=== PATIENT | female | born 1995 | race Caucasian/White ===

== ENCOUNTER 2016-07-01 11:38 | Emergency (ER) | payer BC ==
[2016-07-01] MEDS ORDERED: Ketorolac INJ* 30 MG/ML 1 ML VIAL IV ONE (13:07)
[2016-07-01 13:16] LABS: Comments Flag Yes; Hematocrit 39 % (35-47); Hemoglobin 12.9 g/dl (12.0-16.0); Mean Corpuscular HGB Conc 33 g/dl (31-36); Mean Corpuscular Hemoglobin 29 pg (27-31); Mean Corpuscular Volume 87 fL (80-97); Mean Platelet Volume 10 um3 (7.4-10.4); Red Blood Count 4.51 10^6/ul (4.0-5.4); Red Cell Distribution Width 14 % (10.5-15); White Blood Count 2.7 10^3/ul (3.5-10.8)
[2016-07-01 13:18] LABS: Add Diff/Slide Review? Slide Review Added
[2016-07-01 13:27] LABS: Albumin 4.2 g/dL (3.2-5.2); BUN/Creatinine Ratio 12.5 (8-20); C Reactive Protein 58.11 mg/L (< 5.00); Calcium 9.2 mg/dL (8.6-10.3); EGFR African American 106.5 (>60); EGFR Non-African American 82.8 (>60); Globulin 3.2 g/dL (2-4); Potassium 3.4 mmol/L (3.5-5.0); Total Bilirubin 0.6 mg/dL (0.2-1.0); Total Protein 7.4 g/dL (6.4-8.9)
[2016-07-01] MEDS: NS 0.9% 1000 ML* 2,000 ML IV ONE ×2 (13:30→14:24)
--- NOTE | 2016-07-01 13:54 | RAD ---
INDICATION: Shortness of breath. Multiple days fever. Exercise-induced asthma. COMPARISON: None. TECHNIQUE: Dual energy PA and routine lateral views of the chest were obtained. REPORT: Clear lungs and pleural spaces. Negative for pneumothorax. The heart, pulmonary vasculature, and mediastinal contours are unremarkable. Unremarkable osseous structures and soft tissue contours. IMPRESSION: No evidence for pneumonia. Negative exam.
[2016-07-01 14:43] LABS: Urine Bacteria Absent (Absent); Urine Bilirubin Negative (Negative); Urine Glucose Negative (Negative); Urine Nitrite Negative (Negative)
--- NOTE | 2016-07-01 14:54 | ED ---
Influenza-Like Illness - HPI Summary HPI Summary: Patient presents with a combination of symptoms. She has a history of labial lesions that were diagnosed two years ago with MRSA. She presents today with 5 days of evolving lesions that she thinks appear to be resolving. She can not relate the onset to any activity. She has not had a new sexual partner, and professes to practice safe sex. She denies vaginal drainage and her period is just ending and is regular. As for her URI symptoms, these have gone on for approximately a week with a cough, congestion, temperatures around 100 and body aches. She called in to work yesterday and today, and has been resting. She his able to eat and drink without N/V/D or constipation. She has had intermittent WARREN that resolves with ibuprofen or Tylenol. No CP, SOB, abdominal or back pain. No urinary symptoms. - History of Current Complaint Chief Complaint: EDFever Time Seen by Provider: 07/01/16 11:55 Hx Obtained From: Patient, Family/Electrical Instrument Technician Onset/Duration: Gradual Onset Severity: Moderate Associated Signs & Symptoms: Fever, Myalgia, Cough, Nasal Congestion Related Hx: Possible Flu/Infectious Exposure - Allergy/Home Medications Allergies/Adverse Reactions: Allergies Allergy/AdvReac Type Severity Reaction Status Date / Time Hydrocodone Allergy Severe Shakes Verified 07/01/16 11:51 Peanuts Allergy Severe Headache Uncoded 07/01/16 11:51 PMH/Surg Hx/FS Hx/Imm Hx Endocrine/Hematology History: Denies: Hx Diabetes, Hx Thyroid Disease Cardiovascular History: Denies: Hx Hypertension Respiratory History: Reports: Hx Asthma - exercise induced Denies: Hx Chronic Obstructive Pulmonary Disease (COPD) GI History: Denies: Hx Ulcer Psychiatric History: Denies: Hx Eating Disorder, Hx of Violent Episodes Against Others Infectious Disease History: Yes Infectious Disease History: Reports: Hx of Known/Suspected MRSA - VAGINAL LESIONS, BOILS (FOREHEAD, LEGS) Denies: Hx Clostridium Difficile, Hx Hepatitis, Hx Human Immunodeficiency Virus (HIV), Hx Shingles, Hx Tuberculosis, Hx Known/Suspected VRE, Hx Known/ Suspected VRSA, History Other Infectious Disease, Traveled Outside the [place] in Last 30 Days - Family History Known Family History: Positive: Other - GER'S THYROIDITIS Negative: Cardiac Disease, Hypertension, Diabetes - Social History Occupation: Employed Full-time Lives: With Family Alcohol Use: None Substance Use Type: Reports: None Smoking Status (MU): Never Smoked Tobacco Review of Systems Positive: Fever, Fatigue Negative: Photophobia, Blurred Vision Negative: Sore Throat, Ear Ache Negative: Chest Pain Positive: Cough. Negative: Shortness Of Breath Negative: Abdominal Pain, Vomiting, Diarrhea, Nausea Positive: no symptoms reported Positive: Myalgia Negative: Headache, Weakness, Paresthesia All Other Systems Reviewed And Are Negative: Yes Physical Exam Triage Information Reviewed: Yes Vital Signs On Initial Exam: Initial Vitals Temp Pulse Resp BP Pulse Ox 102.0 F 107 16 135/70 100 07/01/16 11:40 07/01/16 11:40 07/01/16 11:40 07/01/16 11:40 07/01/16 11:40 Vital Signs Reviewed: Yes Appearance: Positive: Well-Appearing, No Pain Distress, Well-Nourished Skin: Positive: Warm, Skin Color Reflects Adequate Perfusion, Dry, Soft Head/Face: Positive: Normal Head/Face Inspection Eyes: Positive: EOMI, MAYE, Conjunctiva Clear ENT: Positive: Hearing grossly normal, Pharynx normal, TMs normal Neck: Positive: Supple, Nontender, No Lymphadenopathy Respiratory/Lung Sounds: Positive: Clear to Auscultation, Breath Sounds Present Cardiovascular: Positive: RRR - on exam Abdomen Description: Positive: Nontender, Soft. Negative: CVA Tenderness (R), CVA Tenderness (L), Distended, Guarding Bowel Sounds: Positive: Present Pelvic Exam: Positive: lesions - two flat, 2mm non-pustular, non-draining, lesions on the right labia minora that appear benign and non-painful. Negative : active bleeding, discharge Musculoskeletal: Positive: Strength/ROM Intact. Negative: Edema Left, Edema Right Neurological: Positive: Sensory/Motor Intact, Alert, Oriented to Person Place, Time, NV Bundle Intact Distally, Normal Gait Psychiatric: Positive: Affect/Mood Appropriate AVPU Assessment: Alert - Mio Coma Scale Coma Scale Total: 15 Diagnostics - Vital Signs Vital Signs Temp Pulse Resp BP Pulse Ox 07/01/16 14:40 102.4 F 07/01/16 14:24 103 F 86 16 123/61 98 07/01/16 11:40 102.0 F 107 16 135/70 100 - Laboratory Lab Results: Lab Results 07/01/16 07/01/16 07/01/16 Range/Units 12:25 12:25 14:13 WBC 2.7 L (3.5-10.8) 10^3/ul RBC 4.51 (4.0-5.4) 10^6/ul Hgb 12.9 (12.0-16.0) g/dl Hct 39 (35-47) % MCV 87 (80-97) fL MCH 29 (27-31) pg MCHC 33 (31-36) g/dl RDW 14 (10.5-15) % Plt Count 81 L (150-450) 10^3/ul MPV 10 (7.4-10.4) um3 Neut % (Auto) 63.5 (38-83) % Lymph % (Auto) 20.4 L (25-47) % Shoshone % (Auto) 13.9 H (1-9) % Eos % (Auto) 0.2 (0-6) % Baso % (Auto) 2.0 (0-2) % Absolute Neuts (auto) 1.7 (1.5-7.7) 10^3/ul Absolute Lymphs (auto) 0.5 L (1.0-4.8) 10^3/ul Absolute Monos (auto) 0.4 (0-0.8) 10^3/ul Absolute Eos (auto) 0 (0-0.6) 10^3/ul Absolute Basos (auto) 0.1 (0-0.2) 10^3/ul Absolute Nucleated RBC 0 10^3/ul Nucleated RBC % 0.1 Sodium 133 (133-145) mmol/L Potassium 3.4 L (3.5-5.0) mmol/L Chloride 101 (101-111) mmol/L Carbon Dioxide 27 (22-32) mmol/L Anion Gap 5 (2-11) mmol/L BUN 11 (6-24) mg/dL Creatinine 0.88 (0.51-0.95) mg/dL Est GFR ( Amer) 106.5 (>60) Est GFR (Non-Af Amer) 82.8 (>60) BUN/Creatinine Ratio 12.5 (8-20) Glucose 95 (70-100) mg/dL Calcium 9.2 (8.6-10.3) mg/dL Total Bilirubin 0.60 (0.2-1.0) mg/dL AST 40 H (13-39) U/L ALT 33 (7-52) U/L Alkaline Phosphatase 67 (34-104) U/L C-Reactive Protein 58.11 H (< 5.00) mg/L Total Protein 7.4 (6.4-8.9) g/dL Albumin 4.2 (3.2-5.2) g/dL Globulin 3.2 (2-4) g/dL Albumin/Globulin Ratio 1.3 (1-3) Urine Color Urine Appearance Urine pH (5-9) Ur Specific Jackson (1.010-1.030) Urine Protein (Negative) Urine Ketones (Negative) Urine Blood (Negative) Urine Nitrate (Negative) Urine Bilirubin (Negative) Urine Urobilinogen (Negative) Ur Leukocyte Esterase (Negative) Urine WBC (Auto) (Absent) Urine RBC (Auto) (Absent) Ur Squamous Epith Cells (Absent) Urine Bacteria (Absent) Urine Glucose (Negative) Influenza A (Rapid) Negative (Negative) Influenza B (Rapid) Negative (Negative) 07/01/16 Range/Units 14:25 WBC (3.5-10.8) 10^3/ul RBC (4.0-5.4) 10^6/ul Hgb (12.0-16.0) g/dl Hct (35-47) % MCV (80-97) fL MCH (27-31) pg MCHC (31-36) g/dl RDW (10.5-15) % Plt Count (150-450) 10^3/ul MPV (7.4-10.4) um3 Neut % (Auto) (38-83) % Lymph % (Auto) (25-47) % Shoshone % (Auto) (1-9) % Eos % (Auto) (0-6) % Baso % (Auto) (0-2) % Absolute Neuts (auto) (1.5-7.7) 10^3/ul Absolute Lymphs (auto) (1.0-4.8) 10^3/ul Absolute Monos (auto) (0-0.8) 10^3/ul Absolute Eos (auto) (0-0.6) 10^3/ul Absolute Basos (auto) (0-0.2) 10^3/ul Absolute Nucleated RBC 10^3/ul Nucleated RBC % Sodium (133-145) mmol/L Potassium (3.5-5.0) mmol/L Chloride (101-111) mmol/L Carbon Dioxide (22-32) mmol/L Anion Gap (2-11) mmol/L BUN (6-24) mg/dL Creatinine (0.51-0.95) mg/dL Est GFR ( Amer) (>60) Est GFR (Non-Af Amer) (>60) BUN/Creatinine Ratio (8-20) Glucose (70-100) mg/dL Calcium (8.6-10.3) mg/dL Total Bilirubin (0.2-1.0) mg/dL AST (13-39) U/L ALT (7-52) U/L Alkaline Phosphatase (34-104) U/L C-Reactive Protein (< 5.00) mg/L Total Protein (6.4-8.9) g/dL Albumin (3.2-5.2) g/dL Globulin (2-4) g/dL Albumin/Globulin Ratio (1-3) Urine Color Yellow Urine Appearance Cloudy Urine pH 5.0 (5-9) Ur Specific Jackson 1.019 (1.010-1.030) Urine Protein 1+(30 mg/dl) H (Negative) Urine Ketones 1+ H (Negative) Urine Blood Negative (Negative) Urine Nitrate Negative (Negative) Urine Bilirubin Negative (Negative) Urine Urobilinogen Negative (Negative) Ur Leukocyte Esterase Negative (Negative) Urine WBC (Auto) Trace(0-5/hpf) (Absent) Urine RBC (Auto) 1+(3-5/hpf) H (Absent) Ur Squamous Epith Cells Present H (Absent) Urine Bacteria Absent (Absent) Urine Glucose Negative (Negative) Influenza A (Rapid) (Negative) Influenza B (Rapid) (Negative) Result Diagrams: 07/01/16 12:25 07/01/16 12:25 Lab Statement: Any lab studies that have been ordered have been reviewed, and results considered in the medical decision making process. Re-Evaluation - Re-Evaluation First Eval Re-Evaluation Time: 15:15 Change: Improved Comment: Patient feeling better. Flu Symptom Course/Dx - Course Course Of Treatment: Cultures of the lesions were obtained and sent for evaluation. The patient's symptoms improved with fluids and Toradol. She will be d/c home with a plan to follow-up with her PCP. - Diagnoses Differential Diagnosis/HQI/PQRI: Positive: Bronchitis, Influenza, Pneumonia, RSV , Upper Respiratory Infection Provider Diagnoses: Viral syndrome, Labial lesion Discharge - Discharge Plan Condition: Stable Disposition: HOME Patient Education Materials: Viral Syndrome (ED) Forms: *Work Release Referrals: Kelvin Bloom MD [Primary Care Provider] - Additional Instructions: Please rest and drink extra fluids. Use ibuprofen 600mg three times daily with meals and Tylenol 650 every four hours to reduce your fever. Follow-up with your primary care provider in 2-3 days if your symptoms persist. If your symptoms worsen please return to the emergency department.
[2016-07-01 15:09] VITALS: BP 109/55
== END 2016-07-01 15:08 | disposition home or self-care (01) ==
LOC: ED 11:38
DX: B34.9 Viral infection, unspecified (principal); R50.9 Fever, unspecified; M79.1 Myalgia; R05 Cough; N90.89 Other specified noninflammatory disorders of vulva and perineum
CPT/HCPCS: 36415; 71020; 80053; 81003; 81015; 85025; 86140; 87070; 87205; 87502; 96361; 96374; 99283; J1885

== ENCOUNTER 2017-12-27 09:33 | Emergency (ER) | payer BC, OTHER ==
[2017-12-27 10:00] VITALS: BP 147/67
--- NOTE | 2017-12-27 10:16 | UC ---
Back Pain HPI - HPI Summary HPI Summary: This is scribe Marian Putnam documenting for attending Samira Quijano M.D. Pt is a 22 y/o F who presents to [facility] c/o R foot pain and swelling s/p trauma while at work. Yesterday at about 1600, while wearing rubber boots the pt's R foot was stepped on by a cow, causing her to fall and end up underneath the cow. She was hit on her R elbow by the cow, causing an abrasion. Negative head trauma or LOC. No blood loss from the eyes, ears, or mouth. The 3rd toe on the R foot began bruising immediately and is painful and swollen. On triage, pain is severe ranked 9/10 and is worse since taking her shoe off. She has not taken anything for the pain, continued working all night and has not applied ice. Sx aggravated by movement. Also reports RUE and R-sided back pain. Denies dysuria. Cleaned her R elbow abrasion with soap and water while in the shower. Last Tetanus shot was 2 years ago and she is currently on Doxycycline for MRSA in the inguinal region, which she has been on for 10 days and today is the last day. No chance of . Patient hasn't taken any analgesia. She states her right foot got more painful when she took off her shoe. Patients medication reviewed this visit. - History of Current Complaint Chief Complaint: UCBackPain Stated Complaint: BACK PAIN Time Seen by Provider: 12/27/17 10:06 Hx Obtained From: Patient Hx Last Menstrual Period: 12/25/17 Onset/Duration: Still Present Severity Currently: Severe Pain Intensity: 9 Pain Scale Used: 0-10 Numeric Back Pain: Is Discrete @ - R foot Aggravating Factor(s): Movement Alleviating Factor(s): Nothing - Allergies/Home Medications Allergies/Adverse Reactions: Allergies Allergy/AdvReac Type Severity Reaction Status Date / Time hydrocodone Allergy Intermediate Shakes Verified 12/27/17 10:29 Peanuts Allergy Severe Headache Uncoded 12/27/17 10:29 Home Medications: Home Medications DOXYcycline CAP(*) [DOXYcycline 100MG CAP(*)] 100 mg PO DAILY 12/27/17 [History Confirmed 12/27/17] PMH/Surg Hx/FS Hx/Imm Hx - Additional Past Medical History Additional PMH: Negative PMHx: HTN, COPD, DM Previously Healthy: Yes Respiratory History: Asthma - Exercise-induced - Surgical History Surgical History: None Surgery Procedure, Year, and Place: denies - Family History Known Family History: Positive: Other - GER'S THYROIDITIS Negative: Cardiac Disease, Hypertension, Diabetes - Social History Alcohol Use: Rare Substance Use Type: None Smoking Status (MU): Never Smoked Tobacco - Immunization History Most Recent Influenza Vaccination: NEVER Most Recent Tetanus Shot: ~2009 Vaccination Up to Date: Yes Review of Systems Constitutional: Negative Skin: Bruising - R foot (3rd toe), Other - R elbow abrasion, R foot swelling Eyes: Negative ENT: Negative Respiratory: Negative Cardiovascular: Negative Gastrointestinal: Negative Genitourinary: Negative Motor: Negative Neurovascular: Negative Musculoskeletal: Other: - R foot, R-sided back and RUE pain Neurological: Negative Psychological: Negative All Other Systems Reviewed And Are Negative: Yes - Comments Additional Review of Systems Comments: NEGATIVE: LOC, dysuria Physical Exam - Summary Physical Exam Summary: Vital Signs Reviewed: Yes A+Ox3, no distress Eyes: Conjunctiva Clear, MAYE. EOM intact and full ENT: Hearing grossly normal TM x 2 clear, mmoist, uvula midline, no exudate, no erythema Neck: Positive: Supple Respiratory: Positive: No respiratory distress, No accessory muscle use + CTA throughout no w/r Cardiovascular: RRR nl s1, s2 no m/r CBT <2 sec abd soft + BS nt/nd no guarding, no distension Musculoskeletal Exam: No neck pain - full AROM No pain c/t/l/s mild right lumbar paraspinal pain no crepitus + full AROM upper ext b/l + SLE + flex/ext knee, ankle + TTP right lateral anterior foot over 3-5 MT + great toe extension Neurological: Positive: Alert, + sensation throughout Psychological: Positive: Normal Response To Family Skin: Positive: no rash, + ecchymosis and edema right dorsum lateral foot no crepitus mild edema no abraison Triage Information Reviewed: Yes Vital Signs: Initial Vital Signs Temp 98.4 F 12/27/17 09:53 Pulse 69 12/27/17 09:53 Resp 18 12/27/17 09:53 BP 147/67 12/27/17 09:53 Pulse Ox 100 12/27/17 09:53 Diagnostics - Radiology Foot XR Xray Interpretation: No Acute Changes - No fracture of the right foot is noted. Physician reviewed this report. Radiology Interpretation Completed By: Radiologist Re-Evaluation - Re-Evaluation First Eval Re-Evaluation Time: 10:50 Comment: Discussed intrepretation of XR. Declined a work note or crutches, was advised to wear a hard-soled shoe. Pt declined crutchces, walking shoe, work note. elevate. ice. wound care. return precuations Back Pain Course/Dx - Course Course Of Treatment: Patient medications reviewed this visit. BP elevated - pt in pain - recommend f/u with PCP. Pt with contusion discomfort anterior aspect of right foot - dorsum, lateral. + TTP. No crepitus. Pt with mild right paraspinal lumbar pain. abraison right prox forearm, volar aspect - non suturable. will image. anaglesi. ice - Differential Dx/Diagnosis Provider Diagnoses: Foot contusion. elbow abraison Discharge - Sign-Out/Discharge Documenting (check all that apply): Patient Departure - Discharge - Discharge Plan Condition: Stable Disposition: HOME Patient Education Materials: Foot Contusion (ED) Referrals: Kelvin Bloom MD [Primary Care Provider] - Additional Instructions: - elevate your foot to help with swelling and pain - Okay to alternate ibuprofen (Advil, Motrin) 600mg and tylenol (acetaminophen) 1000mg every 3 hours for pain - apply ice (wrapped in a towel) 20 minutes at a time, 2-3 times a day - anticipate increased pain over the next 1-2 days. This is normal following an injury - after 2 days, apply heat to the areas that are sore - then slow, gentle stretching exercises - It is recommended you use a shoe with a hard sole to provide support under your foot - If you develop uncontrolled pain, vomiting, blood in your urine or any other concerns contact your doctor or return to the emergency department. - Billing Disposition and Condition Condition: STABLE Disposition: Home
[2017-12-27] MEDS ORDERED: Ibuprofen TAB* 600 MG PO ONE (10:41)
--- NOTE | 2017-12-27 12:40 | RAD ---
Indication: Right foot pain. 3 views of the right foot demonstrates no fracture. No other bone or joint abnormality is noted. IMPRESSION: No fracture of the right foot is noted.
== END 2017-12-27 11:02 | disposition home or self-care (01) ==
LOC: UCEAST 09:33
DX: S90.31XA Contusion of right foot, initial encounter (principal); S50.311A Abrasion of right elbow, initial encounter; W55.29XA Other contact with cow, initial encounter; Y93.9 Activity, unspecified; Y92.79 Other farm location as the place of occurrence of the external cause; Y99.0 Civilian activity done for income or pay; M54.5 Low back pain; Z88.5 Allergy status to narcotic agent; Z91.010 Allergy to peanuts
CPT/HCPCS: 99212; A9270-GY; G0463

== ENCOUNTER 2018-01-01 11:53 | Emergency (ER) | payer OTHER ==
--- NOTE | 2018-01-01 12:21 | UC ---
Lower Extremity/Ankle HPI - HPI Summary HPI Summary: 22 yo female presents with right foot pain. She tells me that she was seen on 12/27 for right foot pain because a cow stepped on her foot. XRs were negative. She tells me that her foot is still painful, but she has not been resting it, taking OTC medications, or applying ice. She has been working long days and reports that since the initial injury she has had two more instances of a cow stepping on the same foot. She is ambulatory without assistance, but does have a noticeable limp. Denies numbness or tingling. - History of Current Complaint Stated Complaint: RECHECK OF FOOT INJURY Time Seen by Provider: 01/01/18 12:21 Hx Obtained From: Patient Hx Last Menstrual Period: 12/25/17 Onset/Duration: Gradual Onset Severity Initially: Moderate Severity Currently: Moderate Pain Intensity: 5 Pain Scale Used: 0-10 Numeric Aggravating Factor(s): Standing, Ambulation Able to Bear Weight: Yes - Allergies/Home Medications Allergies/Adverse Reactions: Allergies Allergy/AdvReac Type Severity Reaction Status Date / Time hydrocodone Allergy Intermediate Shakes Verified 01/01/18 12:22 black pepper Allergy Swelling Verified 01/01/18 12:23 Of Face,Lips,& Throat grape Allergy Swelling Verified 01/01/18 12:23 Of Face,Lips,& Throat Peanuts Allergy Severe Headache Uncoded 01/01/18 12:22 PMH/Surg Hx/FS Hx/Imm Hx Respiratory History: Asthma - Surgical History Surgical History: None Surgery Procedure, Year, and Place: denies - Family History Known Family History: Positive: Other - GER'S THYROIDITIS Negative: Cardiac Disease, Hypertension, Diabetes - Social History Occupation: Employed Full-time Lives: With Family Alcohol Use: Rare Substance Use Type: None Smoking Status (MU): Never Smoked Tobacco - Immunization History Most Recent Influenza Vaccination: NEVER Most Recent Tetanus Shot: ~2009 Vaccination Up to Date: Yes Review of Systems Constitutional: Negative Skin: Negative Respiratory: Negative Cardiovascular: Negative Neurovascular: Negative Musculoskeletal: Other: - Right foot pain Neurological: Negative Psychological: Negative All Other Systems Reviewed And Are Negative: Yes Physical Exam - Summary Physical Exam Summary: GENERAL: NAD. WDWN. No pain distress. SKIN: No rashes, sores, lesions, or open wounds. NECK: Supple. Nontender. No lymphadenopathy. CHEST: No accessory muscle use. Breathing comfortably and in no distress. CV: Pulses intact PT and DP. Brisk cap refill. MSK: Right foot: TTP over 3rd-4th MTs. FROM. Strength 5/5. No edema or obvious bony deformities. No ecchymosis. NEURO: Alert. Sensations intact and symmetric B/L LEs PSYCH: Age appropriate behavior. Triage Information Reviewed: Yes Vital Signs: Vital Signs: Temp Pulse Resp BP Pulse Ox 98.4 F 76 18 125/65 98 01/01/18 12:25 01/01/18 12:25 01/01/18 12:25 01/01/18 12:25 01/01/18 12:25 Vital Signs Reviewed: Yes Lower Extremity Course/Dx - Course Course Of Treatment: XR: IMPRESSION: No fracture of the right foot is noted. CAM boot provided. Pt is going on vacation starting tomorrow and says she will be able to rest her foot then. Declined further treatment. - Differential Dx/Diagnosis Provider Diagnoses: right foot pain Discharge - Sign-Out/Discharge Documenting (check all that apply): Patient Departure - Discharge Plan Condition: Stable Disposition: HOME Patient Education Materials: Foot Contusion (ED) Forms: *Work Release Referrals: Kelvin Bloom MD [Primary Care Provider] - Additional Instructions: If you develop a fever, shortness of breath, chest pain, new or worsening symptoms - please call your PCP or go to the ED. 1) Rest and elevate your foot as much as possible - Billing Disposition and Condition Condition: STABLE Disposition: Home
[2018-01-01 12:31] VITALS: BP 125/65
--- NOTE | 2018-01-01 13:02 | RAD ---
Indication: Right foot pain at the third and fourth metatarsals. 3 views of the right foot demonstrates no fracture. No other bone or joint abnormality is noted. IMPRESSION: No fracture of the right foot is noted.
== END 2018-01-01 13:30 | disposition home or self-care (01) ==
LOC: UCEAST 11:53
DX: M79.671 Pain in right foot (principal); Z88.5 Allergy status to narcotic agent; Z91.018 Allergy to other foods
CPT/HCPCS: 99212; G0463

== ENCOUNTER 2018-02-13 10:57 | Emergency (ER) | payer OTHER ==
--- NOTE | 2018-02-13 12:35 | RAD ---
INDICATION: Right foot injury. COMPARISON: Comparison is made with a prior x-ray study from January 01, 2018. TECHNIQUE: 3 views of the right foot were obtained. FINDINGS: There is dorsal soft tissue swelling. There is a healing subacute fracture of the mid to distal diaphysis of the third metatarsal with prominent bony callus and cortical thickening which is new from the prior study. No additional fracture is seen. Joint spaces appear maintained. IMPRESSION: SUBACUTE HEALING FRACTURE OF THE THIRD METATARSAL.
--- NOTE | 2018-02-13 12:38 | UC ---
Lower Extremity/Ankle HPI - HPI Summary HPI Summary: PATIENT IS A AUTISM TUTOR. A COW STEPPED ON HER RIGHT FOOT YESTERDAY EVENING AND PATIENT NOW HAS PAIN AND SWELLING TO THE TOP OF HER RIGHT FOOT AND HER RIGHT FIFTH TOE. IS ABLE TO WEIGHT-BEAR BUT WITH SOME PAIN. - History of Current Complaint Chief Complaint: UCLowerExtremity Stated Complaint: FOOT INJURY Time Seen by Provider: 02/13/18 11:51 Hx Obtained From: Patient Hx Last Menstrual Period: 01/30/18 Onset/Duration: Sudden Onset, Lasting Hours, Still Present Severity Initially: Moderate Severity Currently: Moderate Pain Intensity: 5 Pain Scale Used: 0-10 Numeric Aggravating Factor(s): Standing, Ambulation Alleviating Factor(s): Rest Able to Bear Weight: Yes - WITH PAIN - Allergies/Home Medications Allergies/Adverse Reactions: Allergies Allergy/AdvReac Type Severity Reaction Status Date / Time hydrocodone Allergy Intermediate Shakes Verified 02/13/18 11:32 black pepper Allergy Swelling Verified 02/13/18 11:32 Of Face,Lips,& Throat grape Allergy Swelling Verified 02/13/18 11:32 Of Face,Lips,& Throat Peanuts Allergy Severe Headache Uncoded 02/13/18 11:32 PMH/Surg Hx/FS Hx/Imm Hx Respiratory History: Asthma - Surgical History Surgical History: None Surgery Procedure, Year, and Place: denies - Family History Known Family History: Positive: Other - GER'S THYROIDITIS Negative: Cardiac Disease, Hypertension, Diabetes - Social History Alcohol Use: Rare Substance Use Type: None Smoking Status (MU): Never Smoked Tobacco - Immunization History Most Recent Influenza Vaccination: NEVER Most Recent Tetanus Shot: ~2009 Vaccination Up to Date: Yes Review of Systems Constitutional: Negative Skin: Bruising Respiratory: Negative Cardiovascular: Negative Gastrointestinal: Negative Musculoskeletal: Arthralgia, Decreased ROM, Edema All Other Systems Reviewed And Are Negative: Yes Physical Exam Triage Information Reviewed: Yes Appearance: Well-Appearing, No Pain Distress, Well-Nourished Vital Signs: Initial Vital Signs Temp 97.9 F 02/13/18 11:33 Pulse 59 02/13/18 11:33 Resp 16 02/13/18 11:33 BP 115/46 02/13/18 11:33 Pulse Ox 100 02/13/18 11:33 Vital Signs Reviewed: Yes Eyes: Positive: Conjunctiva Clear ENT: Positive: Hearing grossly normal Neck: Positive: Supple Respiratory: Positive: No respiratory distress, No accessory muscle use Cardiovascular: Positive: Pulses Normal Abdomen Description: Positive: Soft Musculoskeletal: Positive: ROM Limited @ - RIGHT TOES, Edema @ - RIGHT FOOT, Other: - TTP BRIDGE OF RIGHT FOOT AND RIGHT 5TH TOE Neurological: Positive: Alert Psychological: Positive: Age Appropriate Behavior Skin: Positive: Other - BRUISING BRIDGE RIGHT FOOT. RIGHT 5TH TOE ERYTHEMA Diagnostics - Radiology RIGHT FOOT XRAY Xray Interpretation: Positive (See Comments) - SUBACUTE HEALING FRACTURE OF THE THIRD METATARSAL. Radiology Interpretation Completed By: Radiologist Lower Extremity Course/Dx - Course Course Of Treatment: XRAY RIGHT FOOT SHOWS SUBACUTE HEALING FRACTURE OF THE THIRD METATARSAL. UPON FURTHER REVIEW OF THE PATIENT'S CHART IT IS NOTED THAT SHE SUSTAINED A SIMILAR INJURY ON 12/27/18 WHEN A COW STEPPED ON HER FOOT. INITIAL X-RAYS WERE NEGATIVE. DUE TO PERSISTENT DISCOMFORT ON 01/01/19 PATIENT RETURNED FOR REEVALUATION. X-RAYS WERE AGAIN OBTAINED AND READ NEGATIVE. GIVEN TODAY'S X-RAY FINDING I REVIEWED THE 01/01/19 X-RAY IMAGES AND A SMALL CORTICAL DEFECT IS NOTED IN THE AREA OF QUESTION. NO NEW FRACTURE SEEN TODAY. ADVISED ORTHO FOLLOW-UP WITHIN THE NEXT 1-2 WEEKS. PATIENT HAS A CAM BOOT AT HOME THAT SHE CAN WEAR. ADVISED TO LIMIT WEIGHTBEARING. REST, ICE, COMPRESS, ELEVATE. IBUPROFEN NEEDED FOR DISCOMFORT. - Differential Dx/Diagnosis Provider Diagnoses: 1. CONTUSION RIGHT FOOT. 2. HEALING FRACTURE OF THE RIGHT THIRD METATARSAL Discharge - Sign-Out/Discharge Documenting (check all that apply): Patient Departure All imaging exams completed and their final reports reviewed: Yes - Discharge Plan Condition: Stable Disposition: HOME Patient Education Materials: Foot Contusion (ED) Referrals: Mali Vera MD [Medical Doctor] - 1 Week Kelvin Bloom MD [Primary Care Provider] - If Needed Additional Instructions: X-RAY RIGHT FOOT SHOWED A SUBACUTE HEALING FRACTURE OF THE THIRD METATARSAL. ON REVIEW OF YOUR PREVIOUS FOOT XRAY 01/01/19 A SMALL FRACTURE IS NOTED IN THIS SAME SPOT. NO NEW FRACTURES ARE SEEN TODAY. REST, ICE, COMPRESS, ELEVATE. WEAR YOUR CAMBOOT DURING ACTIVITY. FOLLOW-UP WITH ORTHO IN THE NEXT 1-2 WEEKS. OTC MEDS NEEDED FOR DISCOMFORT. - Billing Disposition and Condition Condition: STABLE Disposition: Home
[2018-02-13 13:12] VITALS: BP 128/60
== END 2018-02-13 13:12 | disposition home or self-care (01) ==
LOC: UCEAST 10:57
DX: S90.31XA Contusion of right foot, initial encounter (principal); S92.334A Nondisplaced fracture of third metatarsal bone, right foot, initial encounter for closed fracture; W55.29XA Other contact with cow, initial encounter; Y93.9 Activity, unspecified; Y92.79 Other farm location as the place of occurrence of the external cause; Z88.5 Allergy status to narcotic agent; Z91.010 Allergy to peanuts; Z91.018 Allergy to other foods
CPT/HCPCS: 99212; G0463

== ENCOUNTER 2018-05-30 07:02 | Day surgery (SDC) | payer BC, OTHER ==
[~2018-05-30 07:02] MED LIST: Buffered Lidocaine 0.9% SYRIN* 5 ML/SYR SYRINGE INTRADERM ONE; Lactated Ringers 1000 ML Bag* 1,000 ML IV SCH; Sodium Citrate/Citric Acid* 15 ML UDC PO ONE
[2018-05-30] MEDS ORDERED: Bupivacaine 0.25% SDV PF* 10 ML VIAL INJ ONE (07:16)
[2018-05-30] MEDS ORDERED: Naloxone* 0.4 MG/ML 1 ML VIAL IV PRN (07:57)
[2018-05-30] MEDS ORDERED: Lidocaine 2% PF * 5 ML VIAL ONE (08:14)
[2018-05-30] MEDS ORDERED: Propofol* 10 MG/ML 20 ML BTL ONE (08:14)
[2018-05-30] MEDS ORDERED: Midazolam* 1 MG/ML 2 ML VIAL (2 MG) ONE ×2 (08:17→08:44)
[2018-05-30] MEDS ORDERED: fentaNYL* 50 MCG/ML 2 ML VIAL (100 MCG VIAL) ONE (08:17)
[2018-05-30 09:10] VITALS: BP 113/74
--- NOTE | 2018-05-30 17:22 | OP ---
DATE OF OPERATION: 05/30/18 - [facility] DATE OF : 89 SURGEON: Aram Walker MD SENIOR PRODUCTION PLANNER: CONNER Morris ANESTHESIOLOGIST: Dr. Douglas. ANESTHESIA: Local MAC. PRE-OP DIAGNOSIS: Left index finger deep soft tissue mass. POST-OP DIAGNOSIS: Left index finger deep soft tissue mass. OPERATIVE PROCEDURE: Excision of left index finger base palmar soft tissue mass. INDICATIONS: Janette is 22. She has very large deep soft tissue mass just adjacent to the tendon sheath over the palmar aspect of the MCP joint flexion crease on the ulnar aspect of the index finger. We had talked about risks and benefits. Given the size of it, I thought it would be good to have it excised. We discussed again the risks and she wanted to proceed. FINDINGS: See above and below. ESTIMATED BLOOD LOSS: 1 mL. COMPLICATIONS: None. DESCRIPTION OF PROCEDURE: Janette was seen in the preoperative holding area. The correct site, side, and procedure were identified. We came back to the operating room and the arm was prepped and draped in the usual fashion and a time-out was performed. Prior to prepping and draping, I had infiltrated the operative area with 0.25% plain Marcaine. The arm was exsanguinated with the Esmarch and the tourniquet was inflated to 250 mmHg. I then made a small trapezoidal-type incision over the ulnar aspect of the index finger near the MCP joint flexion crease. I raised a full- thickness flap off the mass. The ulnar digital nerve was just immediately adjacent to the ulnar aspect of the mass. This was dissected free and retracted with a Ragnell retractor. I then released the soft tissue around the margins of the mass. The mass was then taken off the tendon sheath with a [place] blade. Once it was out and excised in its entirety, it was handed off as a specimen. It did look like a ganglion. The bed of the mass was cauterized with the Bovie cautery taking care not to cauterize the digital nerves. The wound was then irrigated out. Skin was closed with 4-0 nylon suture. Soft dressings were applied and she was taken to the recovery room in stable condition. [id number]/[facility] #: [id number] [facility]
== END 2018-05-30 09:25 | disposition home or self-care (01) ==
LOC: OREAST 07:02
PROVIDERS: ATTEND Orthopaedic Surgery Hand Surgery
DX: M67.442 Ganglion, left hand (principal); J45.990 Exercise induced bronchospasm
CPT/HCPCS: 81025; 88304; J2250; J2704; J3010; J3490

== ENCOUNTER 2018-09-05 20:12 | Emergency (ER) | payer BC, OTHER ==
[2018-09-05 20:25] VITALS: BP 132/73
--- NOTE | 2018-09-05 21:55 | UC ---
Eye Complaint HPI - HPI Summary HPI Summary: Started yesterday with a red irritated left eye. It wasn't matted shut this AM. No real pain just 'soreness'. - History of Current Complaint Chief Complaint: Radha Stated Complaint: L EYE COMPLAINT Time Seen by Provider: 09/05/18 21:45 Hx Obtained From: Patient Hx Last Menstrual Period: 2-3 WEEKS AGO Onset/Duration: Gradual Onset Timing: Constant Severity Initially: Mild Severity Currently: Mild Pain Intensity: 1 Location of Injury: Conjunctiva Character: Dull - 'soreness' Aggravating Factor(s): Nothing Alleviating Factor(s): Nothing Associated Signs And Symptoms: Positive: Negative, Drainage (Purulent) - She isn 't actually sure about this - Allergies/Home Medications Allergies/Adverse Reactions: Allergies Allergy/AdvReac Type Severity Reaction Status Date / Time hydrocodone Allergy Intermediate Shakes Verified 09/05/18 20:25 black pepper Allergy Swelling Verified 09/05/18 20:25 Of Face,Lips,& Throat grape Allergy Swelling Verified 09/05/18 20:25 Of Face,Lips,& Throat Peanuts Allergy Severe Headache Uncoded 09/05/18 20:25 Environmental/Seasonal Allergy Eyes Uncoded 09/05/18 20:25 Allergies Itchy/Swollen/Red/Watery Home Medications: Home Medications Naphazoline HCl/Pheniramine [Opcon-A] 1 leydi OP PRN 09/05/18 [History] diPHENhydraMINE PO* [Benadryl PO 25 MG TAB*] 25 mg PO PRN 09/05/18 [History] PMH/Surg Hx/FS Hx/Imm Hx Previously Healthy: Yes - Surgical History Surgical History: Yes Surgery Procedure, Year, and Place: CYST REMOVED FROM LEFT INDEX FINGER 05/2018 - Family History Known Family History: Positive: Other - GER'S THYROIDITIS Negative: Cardiac Disease, Hypertension, Diabetes - Social History Alcohol Use: None Substance Use Type: None Smoking Status (MU): Never Smoked Tobacco Have You Smoked in the Last Year: No - Immunization History Most Recent Influenza Vaccination: NEVER Most Recent Tetanus Shot: ~2009 Vaccination Up to Date: Yes Review of Systems All Other Systems Reviewed And Are Negative: Yes Eyes: Positive: Drainage - a little, Eye Redness. Negative: Blurred Vision, Diplopia, Photophobia ENT: Positive: Negative Respiratory: Positive: Negative Neurological: Positive: Negative Physical Exam - Summary Physical Exam Summary: She is non-toxic in appearance with stable vitals Triage Information Reviewed: Yes Appearance: Well-Appearing Vital Signs: Initial Vital Signs Temp 97.5 F 09/05/18 20:21 Pulse 93 09/05/18 20:21 Resp 16 09/05/18 20:21 BP 132/73 09/05/18 20:21 Pulse Ox 100 09/05/18 20:21 Vital Signs Reviewed: Yes Eyes: Positive: Conjunctiva Inflamed ENT Exam: Normal Neck exam: Normal Respiratory Exam: Normal Neurological Exam: Normal Eye Complaint Course/Dx - Course Course Of Treatment: She has conjunctivitis that is likely bacterial since it is monocular. Alternatively it just could be early in a viral syndrome although she has no other symptoms. - Differential Dx/Diagnosis Provider Diagnosis: Conjunctivitis Discharge - Sign-Out/Discharge Documenting (check all that apply): Patient Departure All imaging exams completed and their final reports reviewed: No Studies - Discharge Plan Condition: Stable Disposition: HOME Patient Education Materials: Conjunctivitis (ED) Referrals: Kelvin Bloom MD [Primary Care Provider] - - Billing Disposition and Condition Condition: STABLE Disposition: Home
[2018-09-05] MEDS ORDERED: Polymyx/Trimethoprim OPTH* 10 ML BTL LEFT EYE SCH (22:00)
== END 2018-09-05 22:30 | disposition home or self-care (01) ==
LOC: UCEAST 20:12
DX: H10.32 Unspecified acute conjunctivitis, left eye (principal); Z88.5 Allergy status to narcotic agent; Z91.010 Allergy to peanuts; Z91.018 Allergy to other foods
CPT/HCPCS: 99212; G0463